=== PATIENT | male | born 1965 | race African-American/Black ===

== ENCOUNTER 2018-02-12 21:32 | Inpatient (IN) | payer OTHER ==
[~2018-02-12] VITALS: Ht 182.9 cm; Wt 103.0 kg
[2018-02-12 21:35] VITALS: BP 176/85
[2018-02-12 21:56] LABS: ABSOLUTE NEUTROPHILS 6.3 thou/uL (1.6-8.1); BASOPHILS 0.4 %; EOSINOPHILS 0.3 %; HEMATOCRIT 39.8 % (42.0-52.0); HEMOGLOBIN 12.6 gm/dL (14.0-18.0); LYMPHOCYTES 28.9 %; MCH 24.6 pg (26.0-34.0); MCHC 31.6 g/dL (28.0-37.0); MCV 77.9 fL (80.0-100.0); MONOCYTES 9.8 %; MPV 8.9 fl. (7.2-11.1); NUCLEATED RBCS 0 /100WBC; PLATELET COUNT* 266 thou/uL (150-400); POLYS 60.6 %; RBC 5.11 mil/uL (4.50-6.00); RDW-CV 15.5 % (10.5-14.5); WBC 10.4 thou/uL (4.0-11.0)
[2018-02-12 22:05] LABS: ANION GAP 7 mmol/L (7-16); BUN 13 mg/dL (7-18); CALCIUM 8.1 mg/dL (8.5-10.1); CHLORIDE 106 mmol/L (98-107); CO2 29 mmol/L (21-32); CREATININE 1.1 mg/dL (0.6-1.3); GLUCOSE 137 mg/dL (70-99); POTASSIUM 3.4 mmol/L (3.5-5.1); SODIUM 142 mmol/L (136-145)
[2018-02-12 22:15] LABS: ALBUMIN 3.4 g/dL (3.4-5.0); ALKALINE PHOSPHATASE 80 U/L (46-116); LIPASE 116 U/L (73-393); NT-PRO BRAIN NAT PEPTIDE 13 pg/mL (<300); SGOT 55 U/L (15-37); SGPT 66 U/L (30-65); TOTAL BILIRUBIN 0.3 mg/dL (<0.1-1.0); TROPONIN-I LEVEL <0.06 ng/mL (<0.06)
[2018-02-13] VITALS (7 sets, daily range): BP systolic 131–155; BP diastolic 65–82
[2018-02-13 05:59] LABS: HEMATOCRIT 37.5 % (42.0-52.0); HEMOGLOBIN 11.7 gm/dL (14.0-18.0); MCH 24.7 pg (26.0-34.0); MCHC 31.2 g/dL (28.0-37.0); RBC 4.75 mil/uL (4.50-6.00); RDW-CV 15.4 % (10.5-14.5); WBC 7.5 thou/uL (4.0-11.0)
[2018-02-13 06:11] LABS: ALBUMIN 3.1 g/dL (3.4-5.0); CALCIUM 7.9 mg/dL (8.5-10.1); CREATININE 0.9 mg/dL (0.6-1.3); POTASSIUM 3.6 mmol/L (3.5-5.1); TOTAL BILIRUBIN 0.5 mg/dL (<0.1-1.0); TOTAL PROTEIN 7.5 g/dL (6.4-8.2)
[2018-02-13 12:20] LABS: URINE BILIRUBIN NEGATIVE (Negative); URINE BLOOD NEGATIVE (Negative); URINE CLARITY CLEAR; URINE COLOR YELLOW; URINE GLUCOSE-RANDOM NEGATIVE (Negative); URINE KETONES TRACE (Negative); URINE LEUKOCYTES-REFLEX NEGATIVE (Negative); URINE NITRITE-REFLEX NEGATIVE (Negative); URINE PROTEIN NEGATIVE (Negative); URINE SPECIFIC GRAVITY 1.025 (1.005-1.030); URINE UROBILINOGEN 0.2 E.U./dl (0.2-1.0)
[2018-02-13 12:28] LABS: AMP/METHAMP Negative (Negative); BARBITURATES Negative (Negative); BENZODIAZEPINES Negative (Negative); COCAINE Negative (Negative); METHADONE Negative (Negative); OPIATES Negative (Negative); PCP Negative (Negative); THC Negative (Negative)
--- NOTE | 2018-02-13 15:10 | EKG ---
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1965 Requested By: Georgina Red Order Number: [id number] MD: Rashaad Bhandari Measurements Intervals [place] Rate: 114 P: 89 AR: 97 QRS: 75 QRSD: 94 T: -26 QT: 326 QTc: 449 Interpretive Statements Sinus tachycardia RSR' in V1 or V2, right VCD or RVH Baseline wander in lead(s) V5 No previous ECG available for comparison Electronically Signed On 02-13-2018 15:09:46 CDT by Rashaad Bhandari [email or web address] <ELECTRONICALLY SIGNED> By: Jane Bhandari MD, [facility] 02/13/18 1509 37 37 Jane Bhandari MD, [facility] /EPI
--- NOTE | 2018-02-13 15:11 | EKG ---
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
[2018-02-14] VITALS: BP 133/63
[2018-02-14 04:00] VITALS: BP 135/72
[2018-02-14 05:20] LABS: CHOLESTEROL 196 mg/dL (<200); HDL CHOLESTEROL 64 mg/dL (>40); LDL CHOLESTEROL 118 mg/dL (<100); SERUM ASSESSMENT Clear; TC:HDL 3.1 Ratio (Not establshd); TRIGLYCERIDE 72 mg/dL (<150); VLDL 14 mg/dL (<40)
[2018-02-14 08:00] VITALS: BP 142/72
[2018-02-14 11:50] VITALS: BP 134/68
--- NOTE | 2018-02-14 14:01 | EKG ---
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 : 1965 Requested By: Jane Bhandari Order Number: [id number] Arleen MD: Rashaad Bhandari Measurements Intervals [place] Rate: 65 P: 78 [place]: 153 QRS: 85 QRSD: 92 T: 25 QT: 412 QTc: 429 Interpretive Statements Sinus rhythm Probable left atrial enlargement RSR' in V1 or V2, right VCD or RVH Compared to ECG 02/13/2018 09:53:26 Right ventricular hypertrophy now present RSR' in V1 or V2 now present Electronically Signed On 02-14-2018 14:00:43 CDT by Rashaad Bhandari [email or web address] <ELECTRONICALLY SIGNED> By: Jane Bhandari MD, [facility] 02/14/18 1400 4 4 Jane Bhandari MD, [facility] /EPI
[2018-02-14 15:40] VITALS: BP 160/89
[2018-02-14 20:00] VITALS: BP 186/78
[2018-02-15 00:37] VITALS: BP 140/89
[2018-02-15 04:00] VITALS: BP 143/73
[2018-02-15 08:00] VITALS: BP 165/75
[2018-02-15 12:00] VITALS: BP 137/74
[2018-02-15] MEDS ORDERED: LIPITOR 20 MG T20 M1 PO (12:30)
[2018-02-15] MEDS ORDERED: LISINOPRIL10 MG PO (12:30)
[2018-02-15] MEDS ORDERED: ASPIR 8181 MG PO (12:30)
[2018-02-15] MEDS ORDERED: COREG6.25 MG PO (12:30)
[2018-02-15 15:32] VITALS: BP 137/74
[2018-02-15 16:00] VITALS: BP 102/48
--- NOTE | 2018-02-15 17:20 | 2DMMODE ---
[place] [address] 2 D/M-MODE ECHOCARDIOGRAM Name: KRANTHI CARDONA Room: [address] IN [facility]#: [id number] Admission: 02/13/18 Attend Phys: David Hadley Discharge: Date of : 61 Date of Service: 02/15/18 1713 Report #: [id number] THIS REPORT FOR: //name// APPROVED REPORT Study performed: 02/15/2018 16:07:55 EXAM: Comprehensive 2D, Doppler, and color-flow Echocardiogram Patient Location: In-Patient Room #: [facility] Status: routine BSA: 2.24 HR: 71 bpm BP: 165/75 mmHg Rhythm: NSR Other Information Study Quality: Good Indications Chest Pain 2D Dimensions IVSd: 9.07 (7-11mm) LVOT Diam: 25.56 (18-24mm) LVDd: 44.63 mm PWd: 7.16 (7-11mm) Ascending Ao: 29.95 (22-36mm) LVDs: 27.19 (25-40mm) Volumes Left Atrial Volume (Systole) LA ESV Index: 20.60 mL/m2 Aortic Valve AoV Peak Ino.: 1.03 m/s AO Peak Gr.: 4.28 mmHg LVOT Max P.05 mmHg AO Mean Gr.: 2.47 mmHg LVOT Mean P.26 mmHg LVOT Max V: 0.87 m/s AO V2 VTI: 23.09 cm LVOT Mean V: 0.50 m/s GARRETT (VTI): 4.42 cm2 LVOT V1 VTI: 19.87 cm Mitral Valve E/A Ratio: 1.27 MV Decel. Time: 183.38 ms MV E Max Ino.: 1.07 m/s MV PHT: 53.18 [place] [address] 2 D/M-MODE ECHOCARDIOGRAM Name: KRANTHI CARDONA Room: [address] IN .R.#: [id number] Admission: 02/13/18 Attend Phys: David Hadley Discharge: Date of : 61 Date of Service: 02/15/18 1713 Report #: [id number] MVA (PHT): 4.14 cm2 TDI E/Lateral E': 10.70 E/Medial E': 9.73 Medial E' Ino.: 0.11 m/s Lateral E' Ino.: 0.10 m/s Pulmonary Valve PV Peak Ino.: 0.77 m/s PV Peak Gr.: 2.39 mmHg Tricuspid Valve RAP Estimate: 5.00 mmHg TR Peak Gr.: 24.62 mmHg RVSP: 29.00 mmHg PA Pressure: 29.00 mmHg Left Ventricle The left ventricle is normal size. There is normal LV segmental wall motion. There is normal left ventricular wall thickness. Left ventricular systolic function is normal. The left ventricular ejection fraction is within the normal range. LVEF is 55-60%. The left ventricular diastolic function is normal. Right Ventricle The right ventricle is normal size. The right ventricular systolic function is normal. Atria The left atrium size is normal. The right atrium size is normal. Aortic Valve The aortic valve is normal in structure. No aortic regurgitation is present. There is no aortic valvular stenosis. Mitral Valve The mitral valve is normal in structure. Trace mitral regurgitation. No evidence of mitral valve stenosis. Tricuspid Valve The tricuspid valve is normal in structure. Trace tricuspid regurgitation. No pulmonary hypertension. Pulmonic Valve The pulmonary valve is normal in structure. There is no pulmonic [place] [address] 2 D/M-MODE ECHOCARDIOGRAM Name: KRANTHI CARDONA Room: [address]#: [id number] Admission: 02/13/18 Attend Phys: David Hadley Discharge: Date of : 61 Date of Service: 02/15/18 1713 Report #: [id number] Great Vessels The aortic root is normal in size. IVC is not well visualized. Pericardium There is no pericardial effusion. <Conclusion> The left ventricle is normal size. There is normal left ventricular wall thickness. Left ventricular systolic function is normal. The left ventricular ejection fraction is within the normal range. LVEF is 55-60%. The left ventricular diastolic function is normal. The right ventricle is normal size. The left atrium size is normal. The aortic valve is normal in structure. The mitral valve is normal in structure. The tricuspid valve is normal in structure. There is no pericardial effusion. There is normal LV segmental wall motion. <ELECTRONICALLY SIGNED> By: Anastacio Acevedo MD, FACC 02/15/18 171 12 12 Anastacio Acevedo MD, FACC /INF
--- NOTE | 2018-02-15 17:53 | CARDNUC ---
[place] [address] CARDIAC NUCLEAR IMAGING REPORT Name: KRANTHI CARDONA Room: [address] IN [facility]#: [id number] Admission: 02/13/18 Attend Phys: David Hadley Discharge: Date of : 61 Date of Service: 02/15/18 1753 Report #: [id number] THIS REPORT FOR: //name// APPROVED REPORT Study performed: 02/13/2018 10:39:00 Indication: Chest pain, Dyspnea, Fatigue Patient Location: In-Patient Room #: [facility] Stress Tech: Ruthy Sutherland Stress Nurse: Joanna Mcconnell RN Ht: 6 ft 1 in Wt: 224 lbs BSA: 2.26 m2 BMI: 29.54 Medical History Medical History: Hyperlipidemia, HTN, Angina, SOB Medications: COREG, ASA 81 MG, LISINOPRIL, ATORVASTATIN, NTG. Allergies: No known drug allergies Cardiac Risk Factors: Age, SOB, HTN, Hyperlipidemia, FHX of CAD Previous Cardiac Procedures: NONE Pretest Chest Pain Characteristics: No chest pain Exercise History: Physically active Physical Disabilities: NONE Meds Held (24 hrs): NTG Resting Data Rest SPECT myocardial perfusion imaging was performed in supine position 45 minutes following the intravenous injection of 11.9 mCi of Tc-99m Sestamibi. Time of rest injection: 804 Administration Route: IV Administration Site: Right AC Exercise Stress At peak stress, the patient was injected intravenously with 35.8mCi of Tc-99m Sestamibi. Time of stress injection: 944 Administration Route: IV Administration Site: Right AC Patient continued to exercise for 6 minute(s). Gated Stress SPECT was performed 45 [place] [address] CARDIAC NUCLEAR IMAGING REPORT Name: KRANTHI CARDONA Room: [address]#: [id number] Admission: 02/13/18 Attend Phys: David Hadley Discharge: Date of : 61 Date of Service: 02/15/18 1753 Report #: [id number] injection. The images were gated to evaluate regional wall motion and calculate left ventricular ejection fraction. Prone imaging was performed. Stress Test Details Stress Test: Exercise stress testing was performed using a Anatoliy protocol. HR Max Heart Rate (APMHR): 166 bpm Resting HR: 65 bpm Target HR (85% APMHR): 141 bpm Max HR Achieved: 169 bpm % of APMHR: 101 Recovery HR: 88 bpm HR response to stress: Normal HR response to stress BP Resting BP: 164/81 mmHg Recovery BP: 162/89 mmHg BP response to stress: Abnormal hypertensive response to stress. ECG Resting ECG: Sinus Rhythm Stress ECG: Sinus Tachycardia ST Change: None Arrhythmia: None Recovery ECG: Sinus Rhythm Recovery ST Change: None Recovery Arrhythmia: None Clinical Reason for Termination: Maximal effort, Patient Request Stress Symptoms: Dyspnea, Weakness, Fatigue, Leg Fatigue Exercise duration: 6 min 0 sec Exercise capacity: 6.08 METs Overall Exercise Capacity for Age: Reduced/Major Dysfunction The patient had no significant symptoms to suggest angina. Nurse Comments Patient was SOB for most of test, weakness increased requiring speed and incline of treadmill to be controlled and reduced for patient safety. Patient requested to stop at 5:30 minutes, but agreed to complete 6:00 minutes for test quality. Recovery was good and appropriate with breathing, HR and B/P adjusting well. Pt stable at end [place] [address] CARDIAC NUCLEAR IMAGING REPORT Name: CARDONAKRANTHI Room: [address]#: [id number] Admission: 02/13/18 Attend Phys: David Hadley Discharge: Date of : 61 Date of Service: 02/15/18 1753 Report #: [id number] Stress ECG Conclusion The baseline 12-lead EKG show sinus rhythm without significant ST or T wave abnormality. EKGs obtained during and post exercise showed sinus rhythm and sinus tachycardia with no significant ST or T wave changes when her to baseline. There were no stress-induced arrhythmias. Study Quality Study: Good Artifact: No artifact Study Data At rest, the left ventricular ejection fraction was 74%.. Post stress, the left ventricular ejection was 68%.. TID = 1.02. Perfusion Normal left ventricular perfusion. Wall Motion Normal left ventricular wall motion. Nuclear Conclusion ECG Findings: negative for ischemia Clinical Findings: negative for ischemia Nuclear Findings: negative for ischemia Exercise Capacity: normal Left Ventricular Function: normal Risk Study: low Myocardial perfusion images show no defect to suggest infarct or ischemia. Left ventricular systolic function appears normal on gated studies. This is a low risk study. <Conclusion> The baseline 12-lead EKG show sinus rhythm without significant ST or T wave abnormality. EKGs obtained during and post exercise showed sinus rhythm and sinus tachycardia with no significant ST or T wave changes when her to baseline. There were no stress-induced arrhythmias. <ELECTRONICALLY SIGNED> By: Kimani Batista MD, FACC 02/15/18 175 52 52 Kimani Batista MD, FACC /INF
--- NOTE | 2018-03-15 09:08 | CON ---
[address] [address] CONSULTATION Name: KRANTHI CARDONA Room: [address] IN M.R.#: [id number] Admission: 02/13/18 Attend Phys: Annetta Freeman Discharge: 02/15/18 Date of : 61 Report #: [id number] THIS REPORT FOR: //name// CC: [facility] physician/PCP David Hadley DATE OF SERVICE: 02/13/2018 HISTORY OF PRESENT ILLNESS: I was asked by Dr. Hadley in the ER and Dr. Nicole of the Hospitalist Service to see this 52-year-old white male in cardiology consultation for evaluation and treatment of chest pain. This man developed left posterior chest pain really in his left posterior shoulder last night at about 7:00. It was an 8 on a scale of 10. It radiated down his left arm and into his left upper chest as well. The pain was 8 on a scale of 10. Initially, it was a sharp sensation and then it became a pressure sensation. The discomfort lasted 2 hours. It went away after he got to the Emergency Room. He did get 4 baby aspirin in the ER. He did not apparently get nitroglycerin sublingually, but nitroglycerin paste was placed and the pain gradually went away, although it was gradually going away once he got to the Emergency Room. Of note is that walking or exercise did seem to make it a little worse. It was associated with shortness of breath, nausea and diaphoresis. There was no relationship to food. He does have some chronic mild dyspnea on exertion that he has had for some time, but no shortness of breath at rest, orthopnea or PND. He has not had edema. He has never had syncope. Coronary risk factors include high cholesterol that has not been treated. He has not been a smoker. He does not have diabetes, does not have high blood pressure, although he has been hypertensive here in the hospital, at least he has had systolic hypertension, but it has improved since he has been at rest, however. He has not had a family history of heart disease. He has not had renal disease or peripheral vascular disease or carotid disease. He has never had a stroke or TIA. He does get pain in his legs when he walks and he thinks is more arthritis. It does not sound like claudication. He has not had open or nonhealing wounds or previous heart problems. The patient says he was quite dizzy with the chest pain. PAST MEDICAL HISTORY: Fairly unimpressive. He has history of back pain and back surgery as well as a fractured ankle. ALLERGIES: He has no known allergies. MEDICATIONS: He takes no medicines. REVIEW OF SYSTEMS: Positive for erectile dysfunction, chest discomfort, shortness of breath with exercise, arthritis, wearing glasses. Otherwise, his review of systems is negative for some 40 different complaints in 14 different system categories. Please see our review of system form for details and negatives in [place] [address] CONSULTATION Name: KRANTHI CARDONA Room: [address] [place]#: [id number] Admission: 02/13/18 Attend Phys: Annetta Freeman Discharge: 02/15/18 Date of : 61 Report #: [id number] SOCIAL HISTORY: He is . 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 He has one alcoholic beverage a day. He does not smoke. He denies using drugs currently. He did try cocaine 2 years ago. He has not had any since. He does have a history of alcohol abuse. He has not been drinking lately, however. PHYSICAL EXAMINATION: GENERAL: He presents as well-developed, well-nourished -Mosotho male, in no acute distress. VITAL SIGNS: He is 6 feet tall and weighs 224 pounds, pulse was 74 and regular, blood pressure is 130/68, respirations 16 and regular, temperature is 98.2. HEENT: His head is atraumatic. Eyes clear. NECK: Supple. There is no jugular venous distention or hepatojugular reflux. Thyroid is not enlarged. There is no adenopathy. SKIN: Warm and dry. Mucous membranes are moist. LUNGS: Clear to auscultation and percussion. HEART: Revealed normal first and second heart sound. There is soft S4 gallop. There is no S3. There are no murmurs, rubs, thrills, or heaves. PMI is nondisplaced. ABDOMEN: Reveals no palpable masses, no organomegaly. EXTREMITIES: Reveal no cyanosis, clubbing or edema. NEUROLOGIC: The patient mentated normally, talked normally and moved all extremities normally. LABORATORY DATA: His EKG shows normal sinus rhythm and nonspecific ST-T changes, particularly in the inferior and lateral chest leads. There is T-wave inversion in lead 3 with biphasic T waves in II and aVF. Initial troponin was 0.06 or normal with a normal BNP of 13, I believe. Subsequent troponins are pending as is a subsequent EKG. IMPRESSION: 1. Chest pain that is suspicious for cardiac pain. 2. Dizziness. 3. Abnormal EKG. 4. History of alcohol abuse. 5. History of cocaine abuse. 6. Hypercholesterolemia. RECOMMENDATION: He should have an exercise Cardiolite stress test and an echo with serial troponins and serial EKGs. [address] [address] CONSULTATION Name: KRANTHI CARDONA Room: [address] IN M.R.#: [id number] Admission: 02/13/18 Attend Phys: Annetta Freeman Discharge: 02/15/18 Date of : 61 Report #: [id number] Thank you very much for asking me to see the patient. If there are any questions, please feel free to contact me. <ELECTRONICALLY SIGNED> By: Kimani Batista MD, FACC 03/15/18 0908 0952 [id number]. Rashaad Bhandari MD, FACC /nt
== END 2018-02-15 18:00 | disposition home or self-care (01) | DRG 392 ==
LOC: M.ERS 21:32 → M.2W 02-13 00:04 → M.TBA-ER 02-13 00:04 → M.2W 02-13 00:27
PROVIDERS: Emergency Medicine; Internal Medicine; ADMIT Internal Medicine
DX: K21.9 Gastro-esophageal reflux disease without esophagitis (principal); E78.00 Pure hypercholesterolemia, unspecified; M51.34 Other intervertebral disc degeneration, thoracic region; F10.20 Alcohol dependence, uncomplicated; Z79.82 Long term (current) use of aspirin; Z79.899 Other long term (current) drug therapy; Z28.21 Immunization not carried out because of patient refusal; I10 Essential (primary) hypertension